=== PATIENT | female | born 1945 | race Caucasian/White ===

== ENCOUNTER 2016-10-01 08:39 | Day surgery (SDC) | payer MEDICARE ==
--- NOTE | ~2016-10-01 | EGD ---
EGD REPORT [facility] [address] [place] [address] NAME: NATALIA CHAUDHARI : [birth year] STATUS : REG [facility]#: [id number] AGE: 71 ADM/REG DATE : 10/01/16 MR#: [id number] REPORT SERV DATE: 10/01/16 DICTATED BY: ARMEN ARNOLD DATE: 10/01/16 REPORT STATUS : Draft TRANSCRIBED BY: [facility] DATE: 10/01/16 Endoscopy Center Patient Name: Natalia Chaudhari Date of : 1945 Attending MD: ARMEN ARNOLD MD Procedure Date No Time: 10/01/2016 Procedure: Colonoscopy Indications: Screening for colorectal malignant neoplasm Referring MD: SARAY WEBER Medicines: Propofol per Anesthesia Complications: No immediate complications. Procedure: Pre-Anesthesia Assessment: - ASA Grade Assessment: III - A patient with severe systemic disease. After I obtained informed consent, the scope was passed under direct vision. Throughout the procedure, the patient's blood pressure, pulse, and oxygen saturations were monitored continuously. The CF [id number] was introduced through the anus and advanced to the terminal ileum. The colonoscopy was performed without difficulty. The patient tolerated the procedure well. The quality of the bowel preparation was good. Findings: The perianal and digital rectal examinations were normal. The terminal ileum appeared normal. Biopsies were taken with a cold forceps for histology. A localized area of moderately erythematous, friable (with spontaneous bleeding), hemorrhagic and llqzgrbu-rlxjbnb-whodnmpob mucosa was found in the cecum. Biopsies were taken with a cold forceps for histology. The rectum, sigmoid colon, descending colon, transverse colon and ascending colon appeared normal. Biopsies were taken with a cold forceps from the right colon for evaluation of microscopic colitis. Biopsies were taken with a cold forceps from the left colon for evaluation of microscopic colitis. A sessile polyp was found in the proximal descending colon. The polyp was 4 mm in size. The polyp was removed with a cold snare. Resection and retrieval were complete. Multiple small-mouthed diverticula were found in the recto-sigmoid colon, in the sigmoid colon and in the descending colon. Non-bleeding internal hemorrhoids were found during retroflexion and were mild, small and Grade I (internal hemorrhoids that do not prolapse). Impression: - The examined portion of the ileum was normal. Biopsied. - The entire examined colon is normal. Biopsied. EGD REPORT [address] [address] NAME: NATALIA CHAUDHARI : [birth year] STATUS : REG [facility]#: [id number] AGE: 71 ADM/REG DATE : 10/01/16 MR#: [id number] REPORT SERV DATE: 10/01/16 DICTATED BY: ARMEN ARNOLD DATE: 10/01/16 REPORT STATUS : Draft TRANSCRIBED BY: [employer] DATE: 10/01/16 - One 4 mm polyp in the proximal descending colon. Resected and retrieved. - Diverticulosis in the recto-sigmoid colon, in the sigmoid colon and in the descending colon. - Non-bleeding internal hemorrhoids. Recommendation: - Patient has a contact number available for emergencies. The signs and symptoms of potential delayed complications were discussed with the patient. Return to normal activities tomorrow. Written discharge instructions were provided to the patient. - Return to previous diet. - Continue present medications. - Await pathology results. - Repeat colonoscopy in 3 - 5 years for surveillance based on pathology results. - Return to my office as previously scheduled. - Discharge patient to home. Procedure Code(s): --- Professional --- 56872, Colonoscopy, flexible, proximal to splenic flexure; with removal of tumor(s), polyp(s), or other lesion(s) by snare technique [id number], 59, Colonoscopy, flexible, proximal to splenic flexure; with biopsy, single or multiple Diagnosis Code(s): --- Professional --- K64.0, First degree hemorrhoids K57.30, Diverticulosis of large intestine without perforation or abscess without bleeding D12.4, Benign neoplasm of descending colon Z12.11, Encounter for screening for malignant neoplasm of colon CPT copyright 2013 [employer]. All rights reserved. The codes documented in this report are preliminary and upon custom car builder review may be revised to meet current compliance requirements. Armen Arnold MD ARMEN ARNOLD MD 10/01/2016 11:16 AM This report has been signed electronically. Number of Addenda: 0 EGD REPORT [facility] [address] [place] [address] NAME: NATALIA CHAUDHARI : [birth year] STATUS : REG [facility] PAT#: [id number] AGE: 71 ADM/REG DATE : 10/01/16 MR#: [id number] REPORT SERV DATE: 10/01/16 DICTATED BY: ARMEN ARNOLD DATE: 10/01/16 REPORT STATUS : Draft TRANSCRIBED BY: [employer] DATE: 10/01/16 Note Initiated On: 10/01/2016 9:50 AM Scope Withdrawal Time 0 hours 16 minutes 44 seconds [address] [place] [address]
[~2016-10-01 08:39] MED LIST: ADVIL PO; FIORICET 50-301 EACH PO; PEP20 PO; V5 PO; ZYRTEC ALLGY10 MG PO
== END 2016-10-01 23:59 | disposition home health service (06) ==
LOC: DMU 08:39
PROVIDERS: Internal Medicine Gastroenterology
PROC: 0DBH8ZX Excision of Cecum, Via Natural or Artificial Opening Endoscopic, Diagnostic (ICD-10-PCS; 2016-10-01)
PROC: 0DBM8ZZ Excision of Descending Colon, Via Natural or Artificial Opening Endoscopic (ICD-10-PCS; 2016-10-01)
PROC: 0DBB8ZX Excision of Ileum, Via Natural or Artificial Opening Endoscopic, Diagnostic (ICD-10-PCS; principal; 2016-10-01 09:30)
PROC: 0DBE8ZX Excision of Large Intestine, Via Natural or Artificial Opening Endoscopic, Diagnostic (ICD-10-PCS; 2016-10-01 09:30)
DX: Z12.11 Encounter for screening for malignant neoplasm of colon (principal); D12.4 Benign neoplasm of descending colon; K57.30 Diverticulosis of large intestine without perforation or abscess without bleeding; K64.0 First degree hemorrhoids; K21.9 Gastro-esophageal reflux disease without esophagitis; Z88.8 Allergy status to other drugs, medicaments and biological substances; Z79.899 Other long term (current) drug therapy; Z87.891 Personal history of nicotine dependence; Z90.710 Acquired absence of both cervix and uterus; Z98.890 Other specified postprocedural states
CPT/HCPCS: 88305